=== PATIENT | female | born 1990 | race American Indian/Alaskan Native ===

== ENCOUNTER 2018-02-17 19:41 | Emergency (ER) | payer MEDICAID ==
--- NOTE | 2018-02-17 21:11 | XRay Report ---
FINAL REPORT PROCEDURE: XR CHEST ROUTINE 2V TECHNIQUE: PA and lateral chest radiographs were obtained. CPT 69839 HISTORY: cough/sob COMPARISON: No prior studies are available for comparison. FINDINGS: Heart: Normal. Mediastinum/Vessels: Normal. Lungs/Pleural space: Normal. Bony thorax: No acute osseous abnormality. Other: IMPRESSION: Normal examination.
--- NOTE | 2018-02-18 01:37 | Emergency Department Report ---
- General Chief Complaint: Upper Respiratory Infection Stated Complaint: COUGH Time Seen by Provider: 02/18/18 01:25 Source: patient, EMS Mode of arrival: Ambulatory Limitations: No Limitations - History of Present Illness Initial Comments: 27-year-old -[place] female comes in reporting a nonproductive cough times one week reports she can get rid of it. Patient is tried no over-the- counter medication. Patient denies any fever chills or nausea no vomiting. She denies any sore throat no runny nose no nasal congestion. MD Complaint: cough -: week(s) (1) Consistency: intermittent Improves With: nothing Worsens With: nothing Treatments Prior to Arrival: none - Related Data Allergies Allergy/AdvReac Type Severity Reaction Status Date / Time No Known Allergies Allergy Unverified 02/17/18 19:52 ED Review of Systems ROS: Stated complaint: COUGH Other details as noted in HPI Constitutional: denies: chills, fever ENT: denies: ear pain, throat pain, congestion Respiratory: cough. denies: shortness of breath, wheezing ED Past Medical Hx - Past Medical History Previous Medical History?: Yes Hx Hypertension: Yes Hx Diabetes: Yes (Pre) Hx Asthma: Yes - Surgical History Past Surgical History?: No - Social History Smoking Status: Former Smoker Substance Use Type: Marijuana ED Physical Exam - General Limitations: No Limitations General appearance: alert, in no apparent distress - Head Head exam: Present: atraumatic, normocephalic - Eye Eye exam: Present: normal appearance - ENT ENT exam: Present: mucous membranes moist - Neck Neck exam: Present: normal inspection - Respiratory Respiratory exam: Present: normal lung sounds bilaterally. Absent: respiratory distress - Cardiovascular Cardiovascular Exam: Present: regular rate, normal rhythm. Absent: systolic murmur, diastolic murmur, rubs, gallop - GI/Abdominal GI/Abdominal exam: Present: soft, normal bowel sounds - Extremities Exam Extremities exam: Present: normal inspection - Back Exam Back exam: Present: normal inspection - Neurological Exam Neurological exam: Present: alert, oriented X3 - Psychiatric Psychiatric exam: Present: normal affect, normal mood - Skin Skin exam: Present: warm, dry, intact, normal color. Absent: rash ED Course Vital Signs 02/17/18 19:45 Temperature 98.9 F Pulse Rate 111 H Respiratory 20 Rate Blood Pressure 136/85 O2 Sat by Pulse 94 Oximetry ED Medical Decision Making - Radiology Data Radiology results: report reviewed, image reviewed FINAL REPORT PROCEDURE: XR CHEST ROUTINE 2V TECHNIQUE: PA and lateral chest radiographs were obtained. CPT 75781 HISTORY: cough/sob COMPARISON: No prior studies are available for comparison. FINDINGS: Heart: Normal. Mediastinum/Vessels: Normal. Lungs/Pleural space: Normal. Bony thorax: No acute osseous abnormality. Other: IMPRESSION: Normal examination. Transcribed By: [facility] [place]ictated By: YVONNE SUAZO Electronically Authenticated By: YVONNE SUAZO Signed Date/Time: 02/17/182103 - Medical Decision Making 27-year-old female with a cough 1 week that has not tried any [id number] medication comes in to be evaluated. Patient's been evaluated by this provider fast track Chest shows normal examination. Recommend patient to try [id number] Robitussin Critical care attestation.: If time is entered above; I have spent that time in minutes in the direct care of this critically ill patient, excluding procedure time. ED Disposition Clinical Impression: Cough Disposition: DC-01 TO HOME OR SELFCARE Is pt being admited?: No Does the pt Need Aspirin: No Condition: Stable Instructions: Dextromethorphan (By mouth) Additional Instructions: Please take [id number] cough medicine if her symptoms persist or gets worse follow-up with a primary care provider. Referrals: PRIMARY CARE, [Primary Care Provider] - 3-5 Days [facility] [Provider Group] - 3-5 Days Forms: Work/School Release Form(ED)
[2018-02-18 02:49] VITALS: BP 138/86
== END 2018-02-18 02:47 | disposition home or self-care (01) ==
LOC: ED 19:41
DX: J45.909 Unspecified asthma, uncomplicated (principal); E11.9 Type 2 diabetes mellitus without complications; I10 Essential (primary) hypertension; F12.10 Cannabis abuse, uncomplicated; Z87.891 Personal history of nicotine dependence
CPT/HCPCS: 71046; 99283

== ENCOUNTER 2018-12-06 05:04 | Emergency (ER) | payer MEDICAID ==
[2018-12-06 05:18] VITALS: BP 136/93
[2018-12-06 06:16] LABS: Basophils % (Auto) 0.7 % (0.0-1.8); Eosinophils # (Auto) 0.4 K/mm3 (0.0-0.4); Eosinophils % (Auto) 7.2 % (0.0-4.3); Hematocrit 37.3 % (30.3-42.9); Hemoglobin 12.2 gm/dl (10.1-14.3); Lymphocytes # (Auto) 2.2 K/mm3 (1.2-5.4); Lymphocytes % (Auto) 39.3 % (13.4-35.0); Mean Corpuscular HGB Conc 33 % (30-34); Mean Corpuscular Volume 85 fl (79-97); Monocytes # (Auto) 0.6 K/mm3 (0.0-0.8); Platelet Count 302 K/mm3 (140-440); Red Blood Count 4.42 M/mm3 (3.65-5.03); Red Cell Distribution Width 15.5 % (13.2-15.2)
[2018-12-06 09:10] LABS: Bilirubin,Urine NEG (Negative); Blood,Urine LG (Negative); Color,Urine Yellow (Yellow); Mucus,Urine FEW /HPF; Protein,Urine <15 mg/dL mg/dL (Negative)
--- NOTE | 2018-12-06 09:41 | Ultrasound Report ---
PROCEDURE: US PELVIC COMPLETE TECHNIQUE: Pelvic ultrasound. Transabdominal and transvaginal imaging HISTORY: vaginal bleeding COMPARISON: None FINDINGS: The uterus measures 6.4 x 3.0 x 4.9 cm. There is no focal uterine mass seen. Endometrial thickness is 4.2 mm. The right ovary measures 3.0 x 2.2 x 2.6 cm. The left ovary measures 3.9 x 1.4 x 2.8 cm. There is no abnormal adnexal mass seen. There is minimal pelvic free fluid in the cul-de-sac. IMPRESSION: Unremarkable pelvic ultrasound. This document is electronically signed by Junie Mancia MD., December 06 2018 10:39:27 AM ET
--- NOTE | 2018-12-06 09:42 | Ultrasound Report ---
PROCEDURE: US TRANSVAGINAL TECHNIQUE: Pelvic ultrasound. Transabdominal and transvaginal imaging HISTORY: vaginal bleeding COMPARISON: None FINDINGS: The uterus measures 6.4 x 3.0 x 4.9 cm. There is no focal uterine mass seen. Endometrial thickness is 4.2 mm. The right ovary measures 3.0 x 2.2 x 2.6 cm. The left ovary measures 3.9 x 1.4 x 2.8 cm. There is no abnormal adnexal mass seen. There is minimal pelvic free fluid in the cul-de-sac. IMPRESSION: Unremarkable pelvic ultrasound. This document is electronically signed by Junie Mancia MD., December 06 2018 10:39:59 AM ET
--- NOTE | 2018-12-06 10:18 | Emergency Department Report ---
ED Female HPI - General Chief complaint: Vaginal Bleeding Stated complaint: VAG BLEEDING Time Seen by Provider: 12/06/18 08:25 Source: patient Mode of arrival: Ambulatory Limitations: No Limitations - History of Present Illness Initial comments: This is a 28-year-old female nontoxic, well nourished in appearance, no acute signs of distress presents to the ED with c/o of vaginal bleeding x1 day. Patient stated after she had a mechanical fall at home and since then yesterday started to have vaginal bleeding. Patient denies any abdominal or pelvic pain. Patient denies any vaginal discharge or foul odor. Patient denies any nausea, vomiting, chest pain, shortness of breathe, fever, chills, headache, stiff neck, numbness, tingling. Patient denies any urinary symptoms. Patient denies any allergies or PMH. MD Complaint: vaginal bleeding -: Last night Severity scale (0 -10): 0 Improves with: none Worsens with: none Are you Now?: No Associated Symptoms: vaginal bleeding. denies: vaginal discharge, abdominal pain, nausea/vomiting, fever/chills, headaches, loss of appetite, dysuria, hematuria, rash, seizure, shortness of breath, syncope, weakness - Related Data Allergies Allergy/AdvReac Type Severity Reaction Status Date / Time No Known Allergies Allergy Unverified 02/17/18 19:52 ED Review of Systems ROS: Stated complaint: VAG BLEEDING Other details as noted in HPI Constitutional: denies: chills, fever Eyes: denies: eye pain, eye discharge, vision change ENT: denies: ear pain, throat pain Respiratory: denies: cough, shortness of breath, wheezing Cardiovascular: denies: chest pain, palpitations Endocrine: no symptoms reported Gastrointestinal: denies: abdominal pain, nausea, diarrhea Genitourinary: abnormal menses. denies: urgency, dysuria, discharge Musculoskeletal: denies: back pain, joint swelling, arthralgia Skin: denies: rash, lesions Neurological: denies: headache, weakness, paresthesias Psychiatric: denies: anxiety, depression Hematological/Lymphatic: denies: easy bleeding, easy bruising ED Past Medical Hx - Past Medical History Previous Medical History?: Yes Hx Hypertension: Yes Hx Diabetes: Yes (Pre) Hx Psychiatric Treatment: Yes (bipolar and depression) Hx Asthma: Yes - Surgical History Past Surgical History?: No - Social History Smoking Status: Current Every Day Smoker Substance Use Type: None ED Physical Exam - General Limitations: No Limitations General appearance: alert, in no apparent distress - Head Head exam: Present: atraumatic, normocephalic - Neck Neck exam: Present: normal inspection, full ROM - Respiratory Respiratory exam: Present: normal lung sounds bilaterally. Absent: respiratory distress, wheezes, rales, rhonchi, stridor, chest wall tenderness, accessory muscle use, decreased breath sounds, prolonged expiratory - Cardiovascular Cardiovascular Exam: Present: regular rate, normal rhythm, normal heart sounds. Absent: irregular rhythm, systolic murmur, diastolic murmur, rubs, gallop - GI/Abdominal GI/Abdominal exam: Present: soft, normal bowel sounds. Absent: distended, tenderness, guarding, rebound, rigid, diminished bowel sounds - Extremities Exam Extremities exam: Present: normal inspection, full ROM. Absent: tenderness - Back Exam Back exam: Present: normal inspection, full ROM. Absent: tenderness, CVA tenderness (R), CVA tenderness (L), muscle spasm, paraspinal tenderness, vertebral tenderness, rash noted - Neurological Exam Neurological exam: Present: alert, oriented X3, normal gait - Psychiatric Psychiatric exam: Present: normal affect, normal mood - Skin Skin exam: Present: warm, dry, intact, normal color. Absent: rash ED Course Vital Signs 12/06/18 05:09 Temperature 98.1 F Pulse Rate 99 H Respiratory 18 Rate Blood Pressure 136/93 O2 Sat by Pulse 97 Oximetry - Reevaluation(s) Reevaluation #1: 12/06/18 10:15 Patient is speaking in full sentences with no signs of distress noted. ED Medical Decision Making - Lab Data Result diagrams: 12/06/18 05:49 - Medical Decision Making This is a 28-year-old female presents with dysmenorrhea. Patient is stable and was examined by me. Normal abdominal exam. US pelvic and transvaginal obtained and dictated by the radiologist WNLs. Ua obtained. Labs unremarkable. Quantative serum test obtained. Patient notified of the US report with no questions noted by the patient. Patient was instructed f/u with [facility] in 2-3 days. At time of discharge, the patient does not seem toxic or ill in appearance. No acute signs of distress noted. Patient agrees to discharge treatment plan of care. No further questions noted by the patient. Critical care attestation.: If time is entered above; I have spent that time in minutes in the direct care of this critically ill patient, excluding procedure time. ED Disposition Clinical Impression: Dysmenorrhea Disposition: TO HOME OR SELFCARE Is pt being admited?: No Does the pt Need Aspirin: No Condition: Stable Instructions: Dysmenorrhea (ED) Additional Instructions: Follow-up with a OBGYN doctor in 2-3 days or if symptoms worsen and continue return to emergency room as soon as possible. Referrals: CHRIS ALFARO MD [Primary Care Provider] - 3-5 Days PRIMARY CARE, [Referring] - 3-5 Days FARZANA BARTLETT MD [Staff Physician] - 3-5 Days [facility] [[facility]] - 3-5 Days Forms: Work/School Release Form(ED)
== END 2018-12-06 10:27 | disposition home or self-care (01) ==
LOC: ED 05:04
DX: N94.6 Dysmenorrhea, unspecified (principal); I10 Essential (primary) hypertension; E11.9 Type 2 diabetes mellitus without complications; J45.909 Unspecified asthma, uncomplicated; F17.200 Nicotine dependence, unspecified, uncomplicated
CPT/HCPCS: 36415; 76830; 76856; 81001; 84702; 84703; 85025; 86900; 86901; 99284

== ENCOUNTER 2019-02-06 01:09 | Emergency (ER) | payer MEDICAID ==
[2019-02-06 02:12] LABS: Basophils % (Auto) 0.6 % (0.0-1.8); Eosinophils # (Auto) 0.1 K/mm3 (0.0-0.4); Eosinophils % (Auto) 2.1 % (0.0-4.3); Hematocrit 37.9 % (30.3-42.9); Hemoglobin 12.4 gm/dl (10.1-14.3); Lymphocytes # (Auto) 2.2 K/mm3 (1.2-5.4); Lymphocytes % (Auto) 39.7 % (13.4-35.0); Mean Corpuscular HGB Conc 33 % (30-34); Mean Corpuscular Volume 83 fl (79-97); Monocytes # (Auto) 0.5 K/mm3 (0.0-0.8); Monocytes % (Auto) 9.1 % (0.0-7.3); Platelet Count 335 K/mm3 (140-440); Red Blood Count 4.55 M/mm3 (3.65-5.03); Red Cell Distribution Width 13.3 % (13.2-15.2)
[2019-02-06 02:21] LABS: Bacteria,Urine 1+ /HPF (Negative); Bilirubin,Urine NEG (Negative); Blood,Urine SM (Negative); Color,Urine Yellow (Yellow); Mucus,Urine FEW /HPF; Protein,Urine <15 mg/dL mg/dL (Negative); Urobilinogen,Urine < 2.0 mg/dL (<2.0)
[2019-02-06 02:31] LABS: BUN/Creatinine Ratio 14; Blood Urea Nitrogen 10 mg/dL (7-17); Calcium 9.3 mg/dL (8.4-10.2); Hemolysis Index 1
[2019-02-06 02:35] LABS: Amphetamine Screen,Urine PRESUMPTIVE NEGATIVE; Benzodiazepines Screen,Urine PRESUMPTIVE NEGATIVE; Cannabinoid Screen,Urine PRESUMPTIVE NEGATIVE; Cocaine Screen,Urine PRESUMPTIVE NEGATIVE; Methadone Screen,Urine PRESUMPTIVE NEGATIVE; Opiate Screen,Urine PRESUMPTIVE NEGATIVE
[2019-02-06] MEDS ORDERED: NORVASC PO ONE (03:25)
--- NOTE | 2019-02-06 03:29 | Emergency Department Report ---
ED Psych HPI - General Chief Complaint: Psych Stated Complaint: MED CLEARANCE Time Seen by Provider: 02/06/19 03:20 Source: patient Mode of arrival: Ambulatory - History of Present Illness Initial Comments: Patient is 28-year-old female with history of borderline personality disorder and depression. Patient presented to the ER stating that she needed medical clearance to be admitted to [facility] for suicidal homicidal ideation. Patient stated that she is thinking about running in traffic. Patient denied any visual or detail hallucination. Patient stated that she has history of hypertension that she is not taking her medication anymore because she does not have it. Complaint: suicidal ideation, feels depressed - Related Data Allergies Allergy/AdvReac Type Severity Reaction Status Date / Time No Known Allergies Allergy Unverified 02/17/18 19:52 ED Review of Systems ROS: Stated complaint: MED CLEARANCE Other details as noted in HPI Comment: All other systems reviewed and negative Constitutional: denies: chills, fever Respiratory: denies: cough, shortness of breath, SOB with exertion Cardiovascular: denies: chest pain, palpitations Gastrointestinal: denies: abdominal pain, nausea, vomiting, diarrhea, constipation, hematemesis, hematochezia Musculoskeletal: denies: back pain Neurological: denies: headache, weakness Psychiatric: depression, homicidal thoughts, suicidal thoughts. denies: auditory hallucinations, visual hallucinations ED Past Medical Hx - Past Medical History Hx Hypertension: Yes Hx Diabetes: Yes (Pre) Hx Psychiatric Treatment: Yes (bipolar and depression) Hx Asthma: Yes - Surgical History Past Surgical History?: No - Social History Smoking Status: Former Smoker Substance Use Type: None ED Physical Exam - General Limitations: No Limitations General appearance: alert, in no apparent distress - Head Head exam: Present: atraumatic, normocephalic, normal inspection - Eye Eye exam: Present: normal appearance, PERRL - ENT ENT exam: Present: normal exam, normal orophraynx, mucous membranes moist - Neck Neck exam: Present: normal inspection, full ROM. Absent: tenderness, meningismus, lymphadenopathy, thyromegaly - Respiratory Respiratory exam: Present: normal lung sounds bilaterally - Cardiovascular Cardiovascular Exam: Present: regular rate, normal rhythm, normal heart sounds - GI/Abdominal GI/Abdominal exam: Present: soft, normal bowel sounds. Absent: distended, tenderness, guarding, rebound, rigid, organomegaly, mass, bruit, pulsatile mass, hernia - Extremities Exam Extremities exam: Present: normal inspection, full ROM, normal capillary refill - Back Exam Back exam: Present: normal inspection, full ROM. Absent: CVA tenderness (R), CVA tenderness (L), muscle spasm, paraspinal tenderness, vertebral tenderness - Neurological Exam Neurological exam: Present: alert, oriented X3, CN II-XII intact, normal gait, reflexes normal - Psychiatric Psychiatric exam: Present: depressed, homicidal ideation, suicidal ideation. Absent: agitated, anxious, flat affect, manic - Skin Skin exam: Present: warm, intact, normal color ED Course Vital Signs 02/06/19 01:18 Temperature 97.7 F Pulse Rate 90 Respiratory 20 Rate Blood Pressure 150/102 O2 Sat by Pulse 100 Oximetry ED Medical Decision Making - Lab Data Result diagrams: 02/06/19 01:30 02/06/19 01:30 Critical care attestation.: If time is entered above; I have spent that time in minutes in the direct care of this critically ill patient, excluding procedure time. ED Disposition Clinical Impression: Suicidal ideation, Hypertension Disposition: DC/TX-65 [facility] HOSP/PSY UNIT Is pt being admited?: No Condition: Stable Instructions: Hypertension (ED)
[2019-02-06 06:10] VITALS: BP 157/93
== END 2019-02-06 07:01 ==
LOC: ED 01:09
DX: F31.9 Bipolar disorder, unspecified (principal); I10 Essential (primary) hypertension; E11.9 Type 2 diabetes mellitus without complications; J45.909 Unspecified asthma, uncomplicated; Z87.891 Personal history of nicotine dependence
CPT/HCPCS: 36415; 80048; 80307; 80320; 81001; 85025; 99285; G0480

== ENCOUNTER 2019-03-22 18:30 | Emergency (ER) | payer MEDICAID ==
[2019-03-22 19:16] VITALS: BP 164/97
--- NOTE | 2019-03-22 19:48 | Event Note ---
ED Screening Note ED Screening Note: pt presents with low back pain that began a week ago no cough itching throat congestion +urinary urgency LNMP: march 05 PMHx HTN, asthma, mental health This initial assessment/diagnostic orders/clinical plan/treatment(s) is/are subject to change based on patients health status, clinical progression and re- assessment by fellow clinical providers in the ED. Further treatment and workup at subsequent clinical providers discretion. Patient/guardian urged not to elope from the ED as their condition may be serious if not clinically assessed and managed. Initial orders include: UA, urine preg
[2019-03-22 20:53] LABS: Bacteria,Urine 1+ /HPF (Negative); Bilirubin,Urine NEG (Negative); Blood,Urine NEG (Negative); Color,Urine Yellow (Yellow); Protein,Urine <15 mg/dL mg/dL (Negative)
[2019-03-22 20:58] LABS: HCG Qualitative,Urine Negative (Negative)
[2019-03-22] MEDS ORDERED: ROBITUSSIN PO ONE (22:05)
[2019-03-22] MEDS ORDERED: IBUPROFEN PO ONE (22:05)
--- NOTE | 2019-03-22 22:06 | Emergency Department Report ---
Minor Respiratory - HPI Chief Complaint: Upper Respiratory Infection Stated Complaint: CONGESTION/BACK PAIN Time Seen by Provider: 03/22/19 19:45 Pain Location: Nose Severity: moderate Minor Respiratory: Yes Rhinorrhea, Yes Able to Tolerate Fluids, Yes Cough, Yes Fever, No Sore Throat, No Ear Pain, No Sick Contacts, No Hemoptysis, No Chest Pain, No Shortness of Breath Other History: 28-year-old female presents to ED complaining of coughing and nasal congestion for the past 2 weeks. Patient states she has had no relief and has been coughing intermittently throughout the day. She denies nausea vomiting or abdominal pain. She has a history of asthma and currently has home medication. ED Review of Systems ROS: Stated complaint: CONGESTION/BACK PAIN Other details as noted in HPI Comment: All other systems reviewed and negative ED Past Medical Hx - Past Medical History Previous Medical History?: Yes Hx Hypertension: Yes Hx Diabetes: Yes (Pre) Hx Psychiatric Treatment: Yes (bipolar and depression) Hx Asthma: Yes - Surgical History Past Surgical History?: No - Social History Smoking Status: Never Smoker Substance Use Type: None - Medications Home Medications: Home Medications Medication Instructions Recorded Confirmed Last Taken Type Azithromycin [Zithromax] 250 mg PO DAILY #6 tablet 03/22/19 Unknown Rx Ibuprofen [Motrin] 800 mg PO Q8HR #20 tablet 03/22/19 Unknown Rx guaiFENesin [Robitussin] 200 mg PO Q6HR #20 tablet 03/22/19 Unknown Rx Minor Respiratory Exam - Exam General: Vital signs noted. No distress. Alert and acting appropriately. HEENT: Yes Moist Mucous Membranes, No Pharyngeal Erythema, No Pharyngeal Exudates, No Rhinorrhea, No Conjuctival Injection, No Frontal Tenderness, No Maxillary Tenderness Ear: Neither TM Bulge, Neither TM Erythema, Neither EAC Pain, Neither EAC Discharge Neck: Yes Supple, No Adenopathy Lungs: Yes Good Air Exchange, No Wheezes, No Ronchi, No Stridor, No Cough, No Labored Respirations, No Retractions, No Use of Accessory Muscles, No Other Abnormal Lung Sounds Heart: Yes Regular, No Murmur Abdomen: Yes Normal Bowel Sounds, No Tenderness, No Peritoneal Signs Skin: No Rash, No Edema Neurologic: Alert and oriented, no deficits. Musculoskeletal: Unremarkable. ED Course Vital Signs 03/22/19 03/22/19 19:13 19:46 Temperature 100.5 F H 98.8 F Pulse Rate 120 H 102 H Respiratory 18 Rate Blood Pressure 164/97 O2 Sat by Pulse 99 Oximetry ED Medical Decision Making - Medical Decision Making 28 year-old male presents with upper respiratory infection Fever resolved no fever during the ED stay. Discussed with mother symptomatic relief with [id number] medications. Discussed continue Tylenol and Motrin as needed for fever and pain. Discussed increase fluids and diet intake. Discussed rest much needed. Discussed daily vitamin C for immune booster. Discussed follow-up with primary care physician in 3-5 days. Patient's mother verbally states she understands and will comply the following instructions and follow-up Vital signs stable. Patient is in no acute distress Critical care attestation.: If time is entered above; I have spent that time in minutes in the direct care of this critically ill patient, excluding procedure time. ED Disposition Clinical Impression: Upper respiratory infection Disposition: DC-01 TO HOME OR SELFCARE Is pt being admited?: No Does the pt Need Aspirin: No Condition: Stable Instructions: Upper Respiratory Infection (ED), Cold Symptoms (ED) Additional Instructions: Make sure to follow up with the primary care physician as discussed. Take all your medications as you've been prescribed. If you have any worsening symptoms or develop new symptoms please return to ED immediately. Prescriptions: Ibuprofen [Motrin] 800 mg PO Q8HR #20 tablet guaiFENesin [Robitussin] 200 mg PO Q6HR #20 tablet Azithromycin [Zithromax] 250 mg PO DAILY #6 tablet Referrals: PRIMARY CARE, [Primary Care Provider] - 3-5 Days [facility] [Outside] - 3-5 Days [facility] [Outside] - 3-5 Days Forms: Work/School Release Form(ED) Time of Disposition: 22:28
== END 2019-03-22 22:54 | disposition home or self-care (01) ==
LOC: ED 18:30
DX: J06.9 Acute upper respiratory infection, unspecified (principal); I10 Essential (primary) hypertension; R73.03 Prediabetes; F31.9 Bipolar disorder, unspecified; F32.9 Major depressive disorder, single episode, unspecified; J45.909 Unspecified asthma, uncomplicated; Z79.899 Other long term (current) drug therapy; Z88.8 Allergy status to other drugs, medicaments and biological substances
CPT/HCPCS: 81001; 81025

== ENCOUNTER 2019-04-15 16:31 | Emergency (ER) | payer MEDICAID ==
--- NOTE | 2019-04-15 16:55 | Event Note ---
ED Screening Note Date of service: 04/15/19 Time: 16:50 ED Screening Note: 28 y/o female with a psych PMH comes in today for SI. Has a plan to cut her throat. She is currently not on any meds. This initial assessment/diagnostic orders/clinical plan/treatment(s) is/are subject to change based on patients health status, clinical progression and re- assessment by fellow clinical providers in the ED. Further treatment and workup at subsequent clinical providers discretion. Patient/guardian urged not to elope from the ED as their condition may be serious if not clinically assessed and managed. Initial orders include:
[2019-04-15 17:56] LABS: Basophils % (Auto) 0.6 % (0.0-1.8); Eosinophils # (Auto) 0.2 K/mm3 (0.0-0.4); Eosinophils % (Auto) 2.8 % (0.0-4.3); Hematocrit 38.4 % (30.3-42.9); Hemoglobin 12.2 gm/dl (10.1-14.3); Lymphocytes # (Auto) 2.5 K/mm3 (1.2-5.4); Mean Corpuscular HGB Conc 32 % (30-34); Mean Corpuscular Volume 80 fl (79-97); Monocytes # (Auto) 0.4 K/mm3 (0.0-0.8); Monocytes % (Auto) 5.6 % (0.0-7.3); Platelet Count 497 K/mm3 (140-440); Red Blood Count 4.79 M/mm3 (3.65-5.03); Red Cell Distribution Width 14.3 % (13.2-15.2)
[2019-04-15 18:12] LABS: Alanine Aminotransferase 11 units/L (7-56); Albumin 4.8 g/dL (3.9-5); BUN/Creatinine Ratio 4; Blood Urea Nitrogen 4 mg/dL (7-17); Calcium 10.9 mg/dL (8.4-10.2); Hemolysis Index 21
--- NOTE | 2019-04-15 18:28 | Emergency Department Report ---
<GLORIA STOLLBRIGID Narvaez - Last Filed: 04/15/19 22:57> ED Psych HPI - General Chief Complaint: Psych Stated Complaint: SI Time Seen by Provider: 04/15/19 16:46 Source: patient Mode of arrival: Ambulatory Limitations: No Limitations - History of Present Illness Initial Comments: Patient is a 28-year-old female that presents emergency room with complaints of suicidal ideations and depression. Patient states she's been taking the herself for a while but is worsening. And becoming more frequent. Patient states she wants to cut her throat. Patient states she is having audio hallucinations. Patient denies visual hallucinations. Patient denies homicidal ideations. Patient states that she is depressed. Patient denies anxiety. MD Complaint: suicidal ideation, feels depressed -: Sudden History of same: Yes Quality: constant Improves With: none Worsens With: none Context: not taking psychiatric, significant life stressor Associated Symptoms: denies: confusion, headache, shortness of breath, nausea, vomiting, syncope, insomnia Treatments Prior to Arrival: placed on mental he If Self Harm: admits thoughts of, has plan - Related Data Home Medications Medication Instructions Recorded Confirmed Last Taken [place] Carbonate [[place] 900 mg PO BID 03/29/19 04/15/19 Unknown Carbonate ER] QUEtiapine [SEROquel] 200 mg PO BID 03/29/19 04/15/19 Unknown amLODIPine [Norvasc] 5 mg PO DAILY 03/29/19 04/15/19 Unknown lamoTRIgine [LaMICtal Xr] 100 mg PO BID 03/29/19 04/15/19 Unknown Allergies Allergy/AdvReac Type Severity Reaction Status Date / Time haloperidol [From Haldol] Allergy Unknown Verified 03/22/19 18:34 lisinopril Allergy Unknown Verified 04/15/19 16:45 ED Review of Systems Constitutional: denies: chills, fever Eyes: denies: eye pain, eye discharge, vision change ENT: denies: ear pain, throat pain Respiratory: denies: cough, shortness of breath, wheezing Cardiovascular: denies: chest pain, palpitations Endocrine: no symptoms reported Gastrointestinal: denies: abdominal pain, nausea, diarrhea Genitourinary: denies: urgency, dysuria, discharge Musculoskeletal: denies: back pain, joint swelling, arthralgia Skin: denies: rash, lesions Neurological: denies: headache, weakness, paresthesias Psychiatric: depression, auditory hallucinations, suicidal thoughts. denies: anxiety Hematological/Lymphatic: denies: easy bleeding, easy bruising ED Past Medical Hx - Past Medical History Previous Medical History?: Yes Hx Hypertension: Yes Hx Diabetes: Yes (Pre) Hx Psychiatric Treatment: Yes (bipolar and depression) Hx Asthma: Yes - Surgical History Past Surgical History?: No - Family History Family history: no significant - Social History Smoking Status: Current Every Day Smoker Substance Use Type: None - Medications Home Medications: Home Medications Medication Instructions Recorded Confirmed Last Taken Type [place] Carbonate [[place] 900 mg PO BID 03/29/19 04/15/19 Unknown History Carbonate ER] QUEtiapine [SEROquel] 200 mg PO BID 03/29/19 04/15/19 Unknown History amLODIPine [Norvasc] 5 mg PO DAILY 03/29/19 04/15/19 Unknown History lamoTRIgine [LaMICtal Xr] 100 mg PO BID 03/29/19 04/15/19 Unknown History ED Physical Exam - General Limitations: No Limitations General appearance: alert, in no apparent distress - Head Head exam: Present: atraumatic, normocephalic - Eye Eye exam: Present: normal appearance - ENT ENT exam: Present: mucous membranes moist - Neck Neck exam: Present: normal inspection - Respiratory Respiratory exam: Present: normal lung sounds bilaterally. Absent: respiratory distress - Cardiovascular Cardiovascular Exam: Present: regular rate, normal rhythm. Absent: systolic murmur, diastolic murmur, rubs, gallop - GI/Abdominal GI/Abdominal exam: Present: soft, normal bowel sounds - Rectal Rectal exam: Present: deferred - Extremities Exam Extremities exam: Present: normal inspection - Back Exam Back exam: Present: normal inspection - Neurological Exam Neurological exam: Present: alert, oriented X3 - Psychiatric Psychiatric exam: Present: depressed, suicidal ideation - Skin Skin exam: Present: warm, dry, intact, normal color. Absent: rash ED Course - Reevaluation(s) Reevaluation #1: I discussed results with patient. Patient is medically clear. Patient will remain in the ER on a 1013 until evaluated by psychiatry or transfer to appropriate psychiatric facility. 04/15/19 22:50 ED Medical Decision Making - Lab Data Result diagrams: 04/15/19 16:54 04/15/19 16:54 - Medical Decision Making Is a 28-year-old female that presents emergency room with suicidal ideations. Patient has a plan to cut her throat. Patient placed on a 1013. Patient also c omplaining of depression. Patient is medically cleared. Patient will remain in the ER on a 1013 until she is cleared by psychiatry. - Differential Diagnosis suicidal ideations. Depression. ED Disposition Clinical Impression: Suicidal ideation, Medical clearance for psychiatric admission Depression Qualifiers: Depression Type: unspecified Qualified Code(s): F32.9 - Major depressive disorder, single episode, unspecified Disposition: DC-01 TO HOME OR SELFCARE Is pt being admited?: No Does the pt Need Aspirin: No Condition: Stable Additional Instructions: Additional Mental Health Outpatient recommendations: [facility] Address: [place] [address] Hours: 8am-2pm In the event of an emergency please contact the following: Call 911 or go to your nearest emergency room [place] [facility] Suicide Prevention Lifeline 8-409-362-KJEF ([phone]) or [email or web address] Reminders: Take medications as ordered. Do not change the does or time unless directed by your physician. If you experience side effects from your medications, notify your outpatient provider or PCP, or return to the emergency room immediately. Ensure any weapons, lethal medications or other means of self-harm are secured by family/guardian/friend to prevent access to them. Schedule and attend all appointment(s) with the recommended referral source. Referrals: [facility] [Outside] - 3-5 Days PRIMARY CARE, [Primary Care Provider] - 2-3 Days Time of Disposition: 22:58 <MARGARITA RODRIGUEZ - Last Filed: 04/16/19 10:54> ED Psych HPI - History of Present Illness Initial Comments: I have discuss Ms Johnson's case with our psychiatric team. 1013 has been rescinded. I have arranged discharge disposition. ED Review of Systems ROS: Stated complaint: SI Other details as noted in HPI ED Course Vital Signs 04/15/19 04/15/19 04/15/19 16:45 19:35 23:27 Temperature 98.6 F 98.3 F Pulse Rate 98 H 96 H Respiratory 16 20 18 Rate Blood Pressure 153/89 Blood Pressure 159/104 [Left] O2 Sat by Pulse 98 100 Oximetry 04/16/19 04/16/19 02:00 08:06 Temperature 98.5 F 98.4 F Pulse Rate 88 98 H Respiratory 18 16 Rate Blood Pressure Blood Pressure 136/66 136/88 [Left] O2 Sat by Pulse 99 100 Oximetry ED Medical Decision Making - Lab Data Result diagrams: 04/15/19 16:54 04/15/19 16:54 Critical care attestation.: If time is entered above; I have spent that time in minutes in the direct care of this critically ill patient, excluding procedure time. ED Disposition Is pt being admited?: No Does the pt Need Aspirin: No
[2019-04-15] MEDS ORDERED: ACETAMINOPHEN 325 MG TAB PO ONE (19:32)
[2019-04-15] MEDS ORDERED: amLODIPine 5 MG TAB PO ONE (19:32)
[2019-04-16 01:37] LABS: Bilirubin,Urine NEG (Negative); Blood,Urine NEG (Negative); Color,Urine Straw (Yellow); Protein,Urine <15 mg/dL mg/dL (Negative); Urobilinogen,Urine < 2.0 mg/dL (<2.0)
[2019-04-16 01:43] LABS: Amphetamine Screen,Urine PRESUMPTIVE NEGATIVE; Benzodiazepines Screen,Urine PRESUMPTIVE NEGATIVE; Cannabinoid Screen,Urine PRESUMPTIVE NEGATIVE; Cocaine Screen,Urine PRESUMPTIVE NEGATIVE; Methadone Screen,Urine PRESUMPTIVE NEGATIVE; Opiate Screen,Urine PRESUMPTIVE NEGATIVE
--- NOTE | 2019-04-16 09:01 | Consultation ---
History of Present Illness - Reason for Consult Consult date: 04/16/19 Reason for consult: Mental Health Evaluation Requesting physician: BRIGID CASTRO III - Chief Complaint Chief complaint: "I am not suicidal" - History of Present Psychiatric Illness 28 y.o. AA female who presented to the ER for Si's and depression per the notes. This patient is known to me. Today the patient was calm and cooperative during the assessment. She stated that she would like to move from her current halfway. She stated that she "really wasn't suicidal yesterday," but thought if she gestured "SI's" the hospital would help her with a new placement to another halfway. She stated that she is willing to move "[facility]." She stated that she would need a referral for outpatient psy services when discharged,. She denies Si/HI's and AVH's. She denies erratic sleep and a poor appetite. She denies recreational drug use and alcohol consumption (etoh). Medications and Allergies Allergies Allergy/AdvReac Type Severity Reaction Status Date / Time haloperidol [From Haldol] Allergy Unknown Verified 03/22/19 18:34 lisinopril Allergy Unknown Verified 04/15/19 16:45 Home Medications Medication Instructions Recorded Confirmed Last Taken Type [place] Carbonate [[place] 900 mg PO BID 03/29/19 04/15/19 Unknown History Carbonate ER] QUEtiapine [SEROquel] 200 mg PO BID 03/29/19 04/15/19 Unknown History amLODIPine [Norvasc] 5 mg PO DAILY 03/29/19 04/15/19 Unknown History lamoTRIgine [LaMICtal Xr] 100 mg PO BID 03/29/19 04/15/19 Unknown History Past psychiatric history - Past Medical History Past Medical History: No medical history Past Surgical History: No surgical history - past Psychiatric treatment and history psychiatric treatment history: Several inpatient psy services. Denies a fam psy hx. - Social History Social history: other (Reside at a halfway) Mental Status Exam - Vital signs Last Vital Signs Temp 98.5 F 04/16/19 02:00 Pulse 88 04/16/19 02:00 Resp 18 04/16/19 02:00 BP 136/66 04/16/19 02:00 Pulse Ox 99 04/16/19 02:00 - Exam Narrative exam: MSE: Appearance: calm, cooperative Behavior: regular eye contact Speech: regular rate and low tone Mood: "okay" Affect: congruent to mood Thought Process: logical Thought Content: denies SI/HI's and AVH's Motor Activity: lying in bed Cognition: A/O x 3 Insight: appropriate Judgment: appropriate Results Result Diagrams: 04/15/19 16:54 04/15/19 16:54 Abnormal lab results 04/15/19 04/15/19 04/15/19 Range/Units 16:54 16:54 16:54 MCH 26 L (28-32) pg Plt Count 497 H (140-440) K/mm3 Chloride 96.7 L (98-107) mmol/L BUN 4 L (7-17) mg/dL Calcium 10.9 H (8.4-10.2) mg/dL Total Protein 8.5 H (6.3-8.2) g/dL Acetaminophen < 5.0 L (10.0-30.0) ug/mL All other labs normal. Assessment and Plan Assessment and plan: Impression: Hx of Depression. Today the patient was calm and cooperative during the assessment. UDS is negative. Recommendations/Plan: Rescind 1013. Discussed generalized coping skills with the patient, she verbalized understanding. Case Mgmt involvement, the patient may need assistance with placement. Dispo: The patient can follow up with [facility] for outpatient psy services. Will staff with Dr Comfort Temple.
[2019-04-16 09:03] VITALS: BP 136/88
== END 2019-04-16 11:06 | disposition home or self-care (01) ==
LOC: ED 16:31
DX: F31.9 Bipolar disorder, unspecified (principal); F32.9 Major depressive disorder, single episode, unspecified; R45.851 Suicidal ideations; Z88.8 Allergy status to other drugs, medicaments and biological substances
CPT/HCPCS: 36415; 80053; 80307; 80320; 81001; 84703; 85025; G0480

== ENCOUNTER 2021-12-04 15:16 | Emergency (ER) | payer MEDICAID ==
[2021-12-04 15:29] VITALS: BP 150/90
[2021-12-04] MEDS ORDERED: methylPREDNISolone ACETATE 80 MG/1 ML INJ IM ONE (17:43)
--- NOTE | 2021-12-04 17:44 | Emergency Department Report ---
ED Rash HPI - HPI Chief Complaint: Skin Rash Stated Complaint: ECZEMA Time Seen by Provider: 12/04/21 17:42 Duration: 5 Days Location: Other Suspected Cause: Other Rash Symptoms: Yes Itching, No Facial Swelling, No Tongue/Oral Swelling, No Breathing Difficulties, No Choking Sensation, No Wheezing/Dyspnea, No Peeling, No Blistering, No Fever, No Lightheaded, No Malaise, No Myalgias Severity: mild Other History: Ms. Larson is a 31-year-old female that comes to the emergency room with an acute on chronic appearing rash. She has not received care for the rash. She does have a history of asthma. There is no secondary infection. No systemic symptoms no oral or ocular lesions ED Review of Systems ROS: Stated complaint: ECZEMA Other details as noted in HPI Comment: All other systems reviewed and negative ED Past Medical Hx - Past Medical History Previous Medical History?: Yes Hx Hypertension: Yes Hx Diabetes: Yes (Pre) Hx Psychiatric Treatment: Yes (bipolar and depression) Hx Asthma: Yes - Surgical History Past Surgical History?: No - Family History Family history: no significant - Social History Smoking Status: Current Every Day Smoker Substance Use Type: None - Medications Home Medications: Home Medications Medication Instructions Recorded Confirmed Last Taken Type [place] Carbonate [[place] 900 mg PO BID 03/29/19 04/15/19 Unknown History Carbonate ER] QUEtiapine [SEROquel] 200 mg PO BID 03/29/19 04/15/19 Unknown History amLODIPine [Norvasc] 5 mg PO DAILY 03/29/19 04/15/19 Unknown History lamoTRIgine [LaMICtal Xr] 100 mg PO BID 03/29/19 04/15/19 Unknown History predniSONE [Deltasone] 20 mg PO DAILY #5 tablet 12/04/21 Unknown Rx Rash Exam - Exam General: Vital signs noted. No distress. Alert and acting appropriately. HEENT: No Periorbital Edema, No Conjuctival Injection, No Chemosis, No Perioral Edema, No Tongue Edema, No Uvular Edema, No Compromised Airway, No Drooling Lungs: Yes Good Air Exchange (Normal Breath Sounds), No Wheezes, No Ronchi, No Stridor, No Cough, No Labored Respirations, No Retractions, No Use of Accessory Muscles, No Other Abnormal Lung Sounds Heart: Yes Regular, No Murmur Skin: Yes Encrustations Other: Positive: Abdomen Normal, Neurologic Normal, Musculoskeletal Normal ED Course Vital Signs 12/04/21 15:27 Temperature 98.4 F Pulse Rate 88 Respiratory 18 Rate Blood Pressure 150/90 [Left] O2 Sat by Pulse 98 Oximetry ED Medical Decision Making - Medical Decision Making Vital Signs 12/04/21 15:27 Temperature 98.4 F Pulse Rate 88 Respiratory 18 Rate Blood Pressure 150/90 [Left] O2 Sat by Pulse 98 Oximetry Patient educated on care and management of eczema. Have given her some steroids. Body surface area involved is too large for creams. Patient educated on the importance of seeing dermatology. Patient being discharged home with discharge plan of care including diet, activity, medications and follow-up. She verbalizes understanding - Differential Diagnosis Acute on chronic eczema Critical care attestation.: If time is entered above; I have spent that time in minutes in the direct care of this critically ill patient, excluding procedure time. ED Disposition Clinical Impression: Eczema Qualifiers: Eczema type: other Qualified Code(s): L30.8 - Other specified dermatitis Disposition: 01 HOME / SELF CARE / HOMELESS Is pt being admited?: No Does the pt Need Aspirin: No Condition: Stable Instructions: Eczema Additional Instructions: OVER THE COUNTER BENADRYL AND PEPCID CAN HELP WITH ITCHING MED ORDERED TODAY FOLLOW UP WITH DERM MD FREDIS FARMER GIVEN YOU A REFERRAL BELOW FOLLOW UP WITH PCP REFERRAL BELOW Prescriptions: predniSONE [Deltasone] 20 mg PO DAILY #5 tablet Referrals: TERRA SIMS MD [Referring] - 3-5 Days CHRIS ALFARO MD [Primary Care Provider] - 3-5 Days Time of Disposition: 17:43
== END 2021-12-04 18:38 | disposition home or self-care (01) ==
LOC: ED 15:16
DX: L30.8 Other specified dermatitis (principal); I10 Essential (primary) hypertension; E11.9 Type 2 diabetes mellitus without complications; F32.9 Major depressive disorder, single episode, unspecified; F17.290 Nicotine dependence, other tobacco product, uncomplicated
CPT/HCPCS: 96372; 99283; J1040

== ENCOUNTER 2022-01-01 00:49 | Emergency (ER) | payer MEDICAID ==
[2022-01-01 01:38] VITALS: BP 127/52
== END 2022-01-01 11:10 | disposition left against medical advice (07) ==
LOC: ED 00:49
DX: R06.02 Shortness of breath (principal); Z53.21 Procedure and treatment not carried out due to patient leaving prior to being seen by health care provider